=== PATIENT | male | born 1960 | race Caucasian/White ===

== ENCOUNTER 2018-07-26 02:20 | Inpatient (IN) | payer OTHER ==
[2018-07-26] MEDS ORDERED: NS 0.9% 1000 ML* 1,000 ML IV ONE (02:28)
[2018-07-26] MEDS ORDERED: Ketorolac INJ* 30 MG/ML 1 ML VIAL IV PUSH ONE (02:29)
[2018-07-26] MEDS ORDERED: Morphine VIAL* 4 MG/ML VIAL (1 ml vial) IV ONE (02:29)
--- NOTE | 2018-07-26 02:30 | ED ---
HPI Chest Pain - HPI Summary HPI Summary: A 58 y/o male brought in by ambulance presents to [facility] with a chief complaint of right sided chest pain since 07:00 07/25/18. The patient drove to [facility] and back on 07/24/18 which would take approximately 8 hours. He states that he sometimes has pain radiating up to his right shoulder. He denies N/V, abdominal pain, SOB, calf swelling, dizziness or lightheadedness. He states that he was lightheaded due to spasms and may have felt SOB due to the pain, but he does not report those symptoms currently in the ED. He claims that NTG in the ambulance alleviated his pain. He rates his pain as a 5/10. He describes the pain as a dull/stabbing pain. He denies smoking. 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 - History of Current Complaint Time Seen by Provider: 07/26/18 02:24 Hx Obtained From: Patient Onset/Duration: Started Hours Ago, Still Present Timing: Constant, Lasting Hours Initial Severity: Moderate Current Severity: Moderate Pain Intensity: 5 Pain Scale Used: 0-10 Numeric Chest Pain Location: Diffuse - right sided Chest Pain Radiates: Yes Chest Pain Radiates To:: Shoulder - right Character: Other: - Dull/stabbing Aggravating Factor(s): Nothing Alleviating Factor(s): Medication Associated Signs and Symptoms: Negative: Dizziness, Shortness of Breath, Fever, Lightheadedness, Nausea, Abdominal Pain, Calf Pain/Swelling, Vomiting - Allergy/Home Medications Allergies/Adverse Reactions: Allergies Allergy/AdvReac Type Severity Reaction Status Date / Time No Known Allergies Allergy Verified 11/08/15 11:22 PMH/Surg Hx/FS Hx/Imm Hx Endocrine/Hematology History: Denies: Hx Diabetes Cardiovascular History: Denies: Hx Hypercholesterolemia, Hx Hypertension - Surgical History Surgery Procedure, Year, and Place: Hernia repair Infectious Disease History: Denies: Traveled Outside the [place] in Last 30 Days - Family History Known Family History: Negative: Cardiac Disease, Hypertension - Social History Alcohol Use: Occasionally Hx Substance Use: No Substance Use Type: Reports: None Hx Tobacco Use: No Smoking Status (MU): Never Smoked Tobacco Review of Systems Negative: Fever Positive: Chest Pain Negative: Shortness Of Breath Negative: Abdominal Pain, Vomiting, Nausea Positive: Arthralgia - right shoulder pain Neurological: Negative - dizziness, lightheadedness All Other Systems Reviewed And Are Negative: Yes Physical Exam - Summary Physical Exam Summary: Appearance: Well-appearing, Well-nourished, lying in bed holding right side of chest in pain Skin: Warm, dry, no obvious rash Eyes: sclera anicteric, no conjunctival pallor ENT: mucous membranes moist, pharynx appears normal Neck: Supple, nontender Respiratory: Clear to auscultation, no signs of respiratory distress Cardiovascular: Normal S1, S2. No murmurs. Normal distal pulses in tibial and radial bilaterally. Abdomen: Soft, nontender, normal active bowel sounds present Musculoskeletal: Normal, Strength/ROM Intact Neurological: A&Ox3, awake and alert, mentation is normal, speech is fluent and appropriate Psychiatric: affect is normal, does not appear anxious or depressed Triage Information Reviewed: Yes Vital Signs Reviewed: Yes Diagnostics - Laboratory Result Diagrams: 07/26/18 02:53 07/26/18 02:53 Lab Statement: Any lab studies that have been ordered have been reviewed, and results considered in the medical decision making process. - Radiology CXR Radiology Interpretation Completed By: ED Physician Summary of Radiographic Findings: No acute disease. Pending official radiology report. - EKG 02:38 Cardiac Rate: NL - 77 bpm EKG Rhythm: Sinus Rhythm Summary of EKG Findings: NSR at 77 BPM, P waves, QRS complex, and T waves are within normal limits, T waves and intervals are normal, no ischemic changes. This is a normal EKG. Chest Pain Course/Dx - Course Course Of Treatment: A 58 y/o male brought in by ambulance presents to [facility] with a chief complaint of right sided chest pain since 07:00 07/25/18. The patient drove to [facility] and back on 07/24/18 which would take approximately 8 hours. He states that he sometimes has pain radiating up to his right shoulder. He denies N/V, abdominal pain, SOB, calf swelling, dizziness or lightheadedness. He states that he was lightheaded due to spasms and may have felt SOB due to the pain, but he does not report those symptoms currently in the ED. He claims that NTG in the ambulance alleviated his pain. He rates his pain as a 5/10. He describes the pain as a dull/stabbing pain. He denies smoking. 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 The physical exam was unremarkable other than the patient holding the right side of his chest in pain. EKG showed NSR at 77 BPM, P waves, QRS complex, and T waves are within normal limits, T waves and intervals are normal, no ischemic changes. This is a normal EKG. CXR showed no acute disease. In the ED course the patient was given Toradol IV, Morphine IV and Sodium Chloride IV. Lab results obtained. D-dimer high at 423. This patient will be signed out to Dr. Johnson at shift pending chest/thorax CTA. Discharge - Sign-Out/Discharge Documenting (check all that apply): Sign-Out Patient Signing out patient TO: Chava Johnson - pending Chest/Thorax CTA - Discharge Plan Condition: Good Disposition: HOME Patient Education Materials: Chest Wall Pain (ED) Referrals: Donovan Amezquita MD [Primary Care Provider] - - Attestation Statements Document Initiated by Scribe: Yes Documenting Scribe: Raymond Melton Provider For Whom Scribe is Documenting (Include Credential): Chava Mcpherson MD Scribe Attestation: Raymond Gonzalez, scribed for Chava Mcpherson MD on 07/26/18 at 0655. Status of Scribe Document: Ready
[2018-07-26 03:01] LABS: ABS Basophils 0 10^3/ul (0-0.2); ABS Eosinophils 0.1 10^3/ul (0-0.6); ABS Lymphocytes 1.3 10^3/ul (1.0-4.8); ABS Monocytes 0.6 10^3/ul (0-0.8); ABS Neutrophils 5.6 10^3/ul (1.5-7.7); ABS Nucleated RBC 0 10^3/ul; Eosinophil % 1.2 %; Hematocrit 43 % (42-52); Hemoglobin 14.8 g/dl (14.0-18.0); Lymphocyte % 16.6 %; Mean Corpuscular HGB Conc 34 g/dl (31-36); Mean Corpuscular Hemoglobin 32 pg (27-31); Mean Corpuscular Volume 93 fL (80-94); Mean Platelet Volume 7.7 fL (7.4-10.4); Nucleated Red Blood Cells % 0.1; Platelet Count 146 10^3/ul (150-450); Red Blood Count 4.68 10^6/ul (4.00-5.40); Red Cell Distribution Width 14 % (10.5-15); White Blood Count 7.6 10^3/ul (3.5-10.8)
[2018-07-26 03:18] LABS: Albumin 3.9 g/dL (3.2-5.2); Albumin/Globulin Ratio 1.6 (1-3); BUN/Creatinine Ratio 18.3 (8-20); Calcium 9.3 mg/dL (8.6-10.3); EGFR Non-African American 58.8 (>60); Globulin 2.4 g/dL (2-4); Potassium 3.9 mmol/L (3.5-5.0); Total Bilirubin 0.7 mg/dL (0.2-1.0); Total Protein 6.3 g/dL (6.4-8.9)
[2018-07-26] MEDS ORDERED: Iodixanol* (CONTRAST) 320 MG/ML 100 ML SDV IV ONE (03:43)
--- NOTE | 2018-07-26 07:10 | ED ---
Progress - Progress Note Progress Note: RECEIVING SIGN-OUT FROM DR. MCPHERSON AT SHIFT CHANGE PENDING CHEST CTA AND DISPO. 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 0719: ED provider at bedside Discussing CTA result with pt and plans to admit. - Results/Orders Results/Orders: CTA CHEST: IMPRESSION: 1. Bilateral lower lobe pulmonary emboli. 2. Coronary artery calcifications. 3. Cystic changes in the right middle lobe. 4. Linear atelectasis or fibrosis in the right lower lobe. ED provider has reviewed this report. Course/Dx - Course Course Of Treatment: RECEIVING SIGN-OUT FROM DR. MCPHERSON AT SHIFT CHANGE PENDING CTA RESULTS. Mr. Soriano was found on CT to have large saddle pulmonary emboli. I spoke with him and he denied any respiratory distress and complained only of pleuritic chest pain. He began to have symptoms about 24 hours ago. He was started on a heparin bolus and drip. I noted no sign of RVH on his EKG and the hospitalists were contacted for admission. - Diagnoses Provider Diagnoses: Pulmonary embolus - Provider Notifications Discussed Care Of Patient With: Mary Izquierdo - hospitalist Time Discussed With Above Provider: 07:13 Instructed by Provider To: Admit As Inpatient - Critical Care Time Critical Care Time: 30-74 min Discharge - Sign-Out/Discharge Documenting (check all that apply): Patient Departure - ADMIT, Receiving Sign- Out Receiving patient FROM: Chava Mcpherson - Discharge Plan Condition: Stable Disposition: ADMITTED TO [facility] - Billing Disposition and Condition Condition: STABLE Disposition: Admitted to [facility] - Attestation Statements Document Initiated by Scribe: Yes Documenting Scribe: Zohra Prajapati Provider For Whom Scribe is Documenting (Include Credential): Dr. Chava Jonhson MD Scribe Attestation: I, randall Gonzalezibed for Dr. Chava Johnson MD on 07/26/18 at 0836. Scribe Documentation Reviewed: Yes Provider Attestation: The documentation as recorded by the Zohra solano accurately reflects the service I personally performed and the decisions made by me, Dr. Chava Johnson MD Status of Scribe Document: Viewed
[2018-07-26] MEDS ORDERED: Heparin DRIP 25,000 UNITS(*) 25,000 UNITS/500 ML BAG IV SCH (07:30)
[2018-07-26] MEDS ORDERED: Heparin VIAL(*) 5000 UNITS/ML VIAL (FIVE THOUSAND) ONE (07:47)
[2018-07-26] MEDS ORDERED: Heparin VIAL(*) 5000 UNITS/ML VIAL (FIVE THOUSAND) IV ONE (07:51)
[2018-07-26] MEDS: Rivaroxaban TAB(*) 15 MG PO SCH ×2 (09:44→20:27)
[2018-07-26] MEDS ORDERED: Acetaminophen TAB* 325 MG PO PRN (10:58)
[2018-07-26] MEDS: Morphine VIAL* 4 MG/ML VIAL (1 ml vial) IV PRN ×2 (13:05→17:32)
--- NOTE | 2018-07-26 13:39 | HP ---
HISTORY AND PHYSICAL: DATE OF ADMISSION: 07/26/18 PRIMARY CARE PROVIDER: Dr. Amezquita. CHIEF COMPLAINT: Chest pain. HISTORY OF PRESENT ILLNESS: Mr. Soriano is a 58-year-old male, who states that on this past , 07/24/18, he drove approximately 12 hours round trip. He woke up on 07/25/18 with discomfort in the right chest and back area. This subsequently progressed radiating to the shoulder and neck. He states that in the evening, he tried to lay down to go to sleep and he had a difficult time doing so. He states that it hurts to take a deep breath. Finally, he told his that he needed to come to the emergency room for evaluation. After the patient was identified to have a pulmonary embolism on CTA, the patient contacted his mother. She reportedly has a history of recurrent DVTs. She sent him an image of testing that she had done that revealed her to be a heterozygote for a factor V Leiden deficiency. PAST MEDICAL HISTORY: None. PAST SURGICAL HISTORY: 1. Deviated septum repair. 2. Left groin hernia repair. MEDICATIONS: 1. Psyllium 1 cap p.o. daily. 2. Fish oil. 3. Multivitamin 1 tablet p.o. daily. ALLERGIES: No known drug allergies. FAMILY HISTORY: Mom is living. She has a history of recurrent DVTs. Dad is also living. He has a history of hypertension. SOCIAL HISTORY: The patient smokes an occasional cigar. He drinks an occasional beer. He works at [employer] in the [place]. He is . He has 3 children. He indicates that his , Ani, would be his healthcare proxy. REVIEW OF SYSTEMS: A complete 11-system review of systems is obtained. Pertinent positives and negatives are as per HPI and otherwise negative. PHYSICAL EXAMINATION GENERAL: The patient is a well-developed, middle-aged male seen sitting up in the bed, in no acute distress. VITAL SIGNS: Blood pressure 133/75, pulse 62, respirations 20, temp 97.0, O2 sat 100% on 2 L. HEENT: Pupils are equal and round. Extraocular muscles are intact. Oropharynx is clear. Oral mucosa is moist. There is no submandibular, cervical , or supraclavicular adenopathy. Thyroid is not enlarged. No thyroid nodules noted. PULMONARY: Lungs are clear to auscultation bilaterally. CARDIAC: Normal S1, S2. Regular rate and rhythm. I do not appreciate any murmur. There is perhaps slight, left greater than right, lower extremity edema. ABDOMEN: Bowel sounds are present. Abdomen is soft, nontender, and nondistended. MUSCULOSKELETAL: There is no cyanosis or clubbing in the digits. There is full active range of motion of all 4 extremities. NEUROLOGIC: Cranial nerves II to XII are grossly intact. Sensation is intact to light touch throughout. Strength is 5/5 and symmetric both upper and lower extremities bilaterally. PSYCHIATRIC: The patient is alert. He is oriented x3. Affect appears appropriate. SKIN: Warm and dry. There are no rashes. DIAGNOSTIC STUDIES/LAB DATA: Laboratory: WBC 7.6, hemoglobin 14.8, hematocrit 43, platelets 146. D-dimer is 423. PTT 28.6. Sodium 137, potassium 3.9, chloride 105, CO2 25, BUN 23, creatinine 1.26, glucose 115, calcium 9.3, bilirubin 0.7, AST 11, ALT 14, alk phos 50, troponin 0, albumin 3.9. EKG reveals normal sinus rhythm with no acute ST-T wave abnormalities. Chest x - ray, stigmata of obstructive lung disease with mild basilar atelectasis. No significant acute pulmonary or cardiac process evident. CTA chest, bilateral lower lobe pulmonary emboli, coronary artery calcifications, cystic changes in the right middle lobe, and linear atelectasis or fibrosis in the right lower lobe. ASSESSMENT AND PLAN: Mr. Sroiano is a 58-year-old male with no significant past medical history, but a family history of his mom having recurrent deep venous thromboses and being a heterozygote for factor V Leiden deficiency, who presents to the emergency room with complaints of the sudden onset of chest pain and is found to have bilateral lower lobe pulmonary emboli. 1. Bilateral pulmonary emboli. The patient was initially started on heparin drip in the emergency room; however, after discussion with the patient and his , the decision has been made to transition him to Xarelto 15 mg p.o. twice daily x21 days followed by 20 mg p.o. daily. I do believe the patient would benefit from a hematology evaluation given his mom's history. This can be done as an outpatient. Additionally, the patient will have lower extremity Dopplers performed to rule out extensive DVT as well as transthoracic echocardiogram to rule out any heart strain. The patient will have Tylenol and morphine available for pain. The patient has been instructed that he can get up and ambulate as he feels comfortable today. 2. The patient is a full code. [id number]/CPS #: [id number] MTDD
[2018-07-26] MEDS ORDERED: HYDROmorphone INJ1* 1 MG/ML SYRINGE ONE (14:50)
[2018-07-26] MEDS: HYDROmorphone INJ1* 1 MG/ML SYRINGE IV SLOW PU PRN (20:27)
[2018-07-26] MEDS ORDERED: Docusate CAP* 100 MG PO ONE (21:55)
[2018-07-27] MEDS: HYDROmorphone INJ1* 1 MG/ML SYRINGE IV SLOW PU PRN ×2 (04:20→08:37)
[2018-07-27] MEDS: Rivaroxaban TAB(*) 15 MG PO SCH ×2 (08:37→20:23)
--- NOTE | 2018-07-27 10:19 | ECHO ---
Patient: EUSEBIO LEE [facility] Rec#: [id number] : 1960 Date: 07/27/2018 Age: 58y Height: 191 cm / 75.2 in Weight: 83 kg / 182.9 lbs Sex: M BSA: 2.12 Room#: [facility] Admit Date#: 07/26/2018 Type: Inpatient Referring: Mary Izquierdo DO Reading: Gurjit Young MD Internet Site Designer: Estela Paz RN RDCS CC: Donovan Amezquita MD Transthoracic Echocardiogram Indication: Pulmonary embolism BP: 136/73 HR: 64 Rhythm: NSR Findings History: No significant past medical history Technical Comments: The study quality is fair. Left Ventricle: The left ventricular chamber size is normal. Mild concentric left ventricular hypertrophy is observed. Global left ventricular wall motion and contractility are within normal limits. There is normal left ventricular systolic function. The estimated ejection fraction is 55-60%. The assessment of diastolic function is non-diagnostic. Left Atrium: The left atrial chamber size is normal. Right Ventricle: The right ventricular cavity size is normal. The right ventricular global systolic function is normal. Right Atrium: The right atrial cavity size is normal. Aortic Valve: The aortic valve is trileaflet. The aortic valve leaflets are mildly thickened. There is no evidence of aortic regurgitation. There is no evidence of aortic stenosis. Mitral Valve: The mitral valve leaflets are mildly thickened. There is trace to mild mitral regurgitation. Tricuspid Valve: The tricuspid valve leaflets are normal. There is trace tricuspid regurgitation. There is evidence of borderline pulmonary hypertension. Pulmonic Valve: The pulmonic valve structure is not well visualized. There is a trace pulmonic regurgitation. There is no pulmonic stenosis. Pericardium: There is no significant pericardial effusion. Aorta: There is no dilatation of the ascending aorta. The aortic arch is not well visualized. There is no dilation of the aortic root. Pulmonary Artery: The main pulmonary artery is not well visualized. Venous: The venous system is not well visualized. Conclusions There is normal left size and left ventricular systolic function. The estimated ejection fraction is 55-60%. Global left ventricular wall motion and contractility are within normal limits. The right ventricular cavity size is normal. The right ventricular global systolic function is normal. Functionally benign heart valves. There is evidence of borderline pulmonary hypertension. There is no prior echocardiogram available to compare with at this time. Measurements Name Value Normal Range RVDdMajor (2D) 4 cm (2.2 - 4.4) RAd ISD 4CH 3.8 cm (3.4 - 4.9) RA (A4C)W 3.3 cm (2.9 - 4.6) IVSd (2D) 1.1 cm (0.6 - 1) LVPWd (2D) 1.1 cm (0.6 - 1) LVIDd (2D) 4.1 cm (3.6 - 5.4) LVIDs (2D) 2.8 cm - LV FS (2D) 32 % (25 - 45) Aortic Annulus 2 cm (1.4 - 2.6) Ao root diameter (2D) 3.4 cm (2.1 - 3.5) Ascending Ao 3.3 cm (2.1 - 3.4) LA dimension (AP) 2D 2.5 cm (2.3 - 3.8) LAd ISD 4CH 3.7 cm (2.9 - 5.3) LA ISD 4CH W 3.5 cm (2.5 - 4.5) Name Value Normal Range LA ESV BP (A/L) index 13.4 ml/m2 - Name Value Normal Range MV E-wave Vmax 0.83 m/sec - MV deceleration time 289 msec - MV A-wave Vmax 0.79 m/sec - LV septal e' Vmax 0.08 m/sec - LV lateral e' Vmax 0.08 m/sec - LV E:e' septal ratio 10.4 ratio - LV E:e' lateral ratio 10.4 ratio - Name Value Normal Range AV Vmax 1.2 m/sec - AV VTI 22.8 cm - AV peak gradient 6 mmHg - AV mean gradient 4 mmHg - LVOT Vmax 0.68 m/sec - LVOT VTI 20.7 cm - LVOT peak gradient 4 mmHg - LVOT mean gradient 2 mmHg - SOSA Vmax 0.74 m/sec - Name Value Normal Range TR Vmax 2.6 m/sec - TR peak gradient 27 mmHg - RAP 8 mmHg - RVSP 35 mmHg - Name Value Normal Range PV Vmax 1 m/sec -
[2018-07-27] MEDS ORDERED: oxyCODONE/Acetamin 5/325 MG* TAB PO PRN ×2 (11:58)
[2018-07-27] MEDS ORDERED: HYDROmorphone INJ1* 1 MG/ML SYRINGE IV SLOW PU PRN (12:00)
[2018-07-27] MEDS: Polyethylene Glycol 3350* 17 GM PACKET PO SCH ×2 (12:15→20:23)
--- NOTE | 2018-07-27 15:05 | PN ---
Subjective Date of Service: 07/27/18 Interval History: HOSPITALIST PROGRESS NOTE Patient seen and examined at bedside. Care reviewed and d/w Ronny Youngblood RN. He feels a little better today, but chest pain is still a 8/10 with inspiration. Denies palpitations, mild dyspnea with exertion. Family History: Unchanged from Admission Social History: Unchanged from Admission Past Medical History: Unchanged from Admission Objective Active Medications: Acetaminophen (Tylenol Tab*) 650 mg PO Q4H PRN PRN Reason: PAIN Hydromorphone HCl (Dilaudid Inj1s*) 1 mg IV SLOW PU Q4H PRN PRN Reason: PAIN Oxycodone/Acetaminophen (Percocet 5/325 Tab*) 1 tab PO Q4H PRN PRN Reason: moderate Pain Oxycodone/Acetaminophen (Percocet 5/325 Tab*) 2 tab PO Q4H PRN PRN Reason: SEVERE PAIN Polyethylene Glycol/Electrolytes (Miralax*) 17 gm PO 0800,2100 [facility] Last Admin: 07/27/18 12:15 Dose: 17 gm Rivaroxaban (Xarelto(*)) 15 mg PO BID [facility] Last Admin: 07/27/18 08:37 Dose: 15 mg Vital Signs - 8 hr 07/27/18 07/27/18 07/27/18 07:43 08:00 08:37 Temperature 100.1 F Pulse Rate 69 Respiratory 18 18 18 Rate Blood Pressure 133/68 (mmHg) O2 Sat by Pulse 96 Oximetry 07/27/18 07/27/18 10:22 12:02 Temperature 99.5 F Pulse Rate 79 Respiratory 16 16 Rate Blood Pressure 143/76 (mmHg) O2 Sat by Pulse 100 Oximetry Oxygen Devices in Use Now: None Appearance: Pleasant gentleman sitting up in bed in NAD. Eyes: No Scleral Icterus Ears/Nose/Mouth/Throat: Mucous Membranes Moist Neck: Trachea Midline Respiratory: Symmetrical Chest Expansion and Respiratory Effort, Clear to Auscultation Cardiovascular: RRR - Normal S1 and S2 Extremities: No Edema Neurological: Alert and Oriented x 3, NL Muscle Strength and Tone Result Diagrams: 07/26/18 02:53 07/26/18 02:53 Assess/Plan/Problems-Billing Assessment: Mr Soriano is a 58yo M with a family history of Factor V Leiden who presented to ED with c/o pleuritic chest pain after a prolonged car trip, found to have DVT/ PE. - Patient Problems (1) Pulmonary embolism Comment: - Mother has a h/o Factor V Leiden and DVTs. - CTA chest showed bilateral lower lobe PEs. - LE doppler shows left popliteal vein DVT. - Echo shows normal EF, normal RV function. - Continue Xarelto. - Will start Percocet for pain management and wean off Dilaudid. (2) Full code status
[2018-07-28] MEDS: Polyethylene Glycol 3350* 17 GM PACKET PO SCH ×2 (07:20→20:48)
[2018-07-28] MEDS: Rivaroxaban TAB(*) 15 MG PO SCH ×2 (07:21→20:49)
[2018-07-28] MEDS ORDERED: Magnesium Hydroxide LIQ* 30 ML UDC PO PRN (09:35)
[2018-07-28] MEDS: Metoprolol Tartrate TAB* 25 MG PO SCH ×2 (09:56→18:42)
[2018-07-28 11:06] LABS: BUN/Creatinine Ratio 10.4 (8-20); Calcium 9.7 mg/dL (8.6-10.3); EGFR Non-African American 71.8 (>60); Magnesium 2.4 mg/dL (1.9-2.7); Potassium 3.8 mmol/L (3.5-5.0)
--- NOTE | 2018-07-28 12:26 | PN ---
Subjective Date of Service: 07/28/18 Interval History: HOSPITALIST PROGRESS NOTE Patient seen and examined at bedside. Care reviewed and d/w Ronny Youngblood RN. Initially patient was feeling well, had improvement of pain and dyspnea. Only complaint was constipation. Plan was for discharge today and patient was agreeable. He went for a walk in the hallway and became tachycardic with HR 160s irregular - EKG confirmed atrial fibrillation. He could feels his heart racing, but denies chest pain or dyspnea. Family History: Unchanged from Admission Social History: Unchanged from Admission Past Medical History: Unchanged from Admission Objective Active Medications: Acetaminophen (Tylenol Tab*) 650 mg PO Q4H PRN PRN Reason: PAIN Hydromorphone HCl (Dilaudid Inj1s*) 1 mg IV SLOW PU Q4H PRN PRN Reason: PAIN Magnesium Hydroxide (Milk Of Magnesia Liq*) 30 ml PO Q6H PRN PRN Reason: CONSTIPATION Last Admin: 07/28/18 10:01 Dose: 30 ml Metoprolol Tartrate (Lopressor Tab*) 25 mg PO Q8H [facility] Last Admin: 07/28/18 09:56 Dose: 25 mg Oxycodone/Acetaminophen (Percocet 5/325 Tab*) 1 tab PO Q4H PRN PRN Reason: moderate Pain Oxycodone/Acetaminophen (Percocet 5/325 Tab*) 2 tab PO Q4H PRN PRN Reason: SEVERE PAIN Polyethylene Glycol/Electrolytes (Miralax*) 17 gm PO 0800,2100 [facility] Last Admin: 07/28/18 07:20 Dose: 17 gm Rivaroxaban (Xarelto(*)) 15 mg PO BID [facility] Last Admin: 07/28/18 07:21 Dose: 15 mg Vital Signs - 8 hr 07/28/18 07:27 Temperature 98.6 F Pulse Rate 112 Respiratory 16 Rate Blood Pressure 125/80 (mmHg) O2 Sat by Pulse 95 Oximetry Oxygen Devices in Use Now: None Appearance: Pleasant gentleman lying in bed in [facility]. Eyes: No Scleral Icterus Ears/Nose/Mouth/Throat: Mucous Membranes Moist Neck: Trachea Midline Respiratory: Symmetrical Chest Expansion and Respiratory Effort, Clear to Auscultation Cardiovascular: NL Sounds; No Murmurs; No JVD, RRR Neurological: Alert and Oriented x 3, NL Muscle Strength and Tone Result Diagrams: 07/26/18 02:53 07/28/18 10:35 Assess/Plan/Problems-Billing Assessment: Mr Soriano is a 58yo M with a family history of Factor V Leiden who presented to ED with c/o pleuritic chest pain after a prolonged car trip, found to have DVT/ PE. - Patient Problems (1) Atrial fibrillation Comment: - In the setting of PE. - Already on Rivaroxaban, plan for rate control - start Metoprolol and continue to monitor. (2) Pulmonary embolism Comment: - Mother has a h/o Factor V Leiden and DVTs. - CTA chest showed bilateral lower lobe PEs. - LE doppler shows left popliteal vein DVT. - Echo shows normal EF, normal RV function. - Continue Xarelto. - Continue pain management. (3) Constipation Comment: - Continue laxatives. (4) Full code status Status and Disposition: Change to inpatient due to new Afib and continue to monitor on Telemetry.
[2018-07-28] MEDS ORDERED: Potassium Chlor TAB* 20 MEQ TAB.ER PO ONE (18:07)
[2018-07-29] MEDS: Metoprolol Tartrate TAB* 25 MG PO SCH ×2 (01:45→09:52)
[2018-07-29] MEDS: Polyethylene Glycol 3350* 17 GM PACKET PO SCH (09:51)
[2018-07-29] MEDS: Rivaroxaban TAB(*) 15 MG PO SCH (09:52)
[2018-07-29 11:21] VITALS: BP 113/73
--- NOTE | 2018-07-30 03:51 | DS ---
CC: Dr. Amezquita * DISCHARGE SUMMARY: DATE OF ADMISSION: 07/26/18 DATE OF DISCHARGE: 07/29/18 PRIMARY CARE PROVIDER: Dr. Amezquita. DISCHARGE DIAGNOSES: 1. Pulmonary embolism. 2. Lower extremity deep venous thrombosis. 3. Paroxysmal atrial fibrillation. MEDICATION LIST: 1. Metoprolol tartrate 25 mg p.o. q.8 hours. 2. Multivitamin 1 tablet p.o. daily. 3. Percocet 5/325 one tablet p.o. q.4 hours p.r.n. severe pain, MDD 6 tablets, dispensed 20. 4. MiraLAX 17 grams p.o. daily. 5. Psyllium 0.52 grams p.o. daily. 6. Rivaroxaban 15 mg p.o. b.i.d. for 90 more days, followed by rivaroxaban 20 mg p.o. daily. HOSPITAL COURSE: Mr. Soriano is a 58-year-old healthy male, who presented to the emergency room with complaints of chest pain and shortness of breath after a prolonged round trip. For more details about his presentation, I refer you to his history and physical. The patient had a CTA of the chest that showed bilateral lower lobe pulmonary emboli with coronary artery calcifications, cystic changes in the right middle lobe, linear atelectasis of the right lower lobe. The patient was admitted to the telemetry floor for further evaluation. He had a lower extremity Doppler that showed nonocclusive DVT of the left popliteal vein and a transthoracic echocardiogram that showed ejection fraction of 55% 60 % with right ventricular cavity size normal with normal global systolic function of the right ventricle also and borderline pulmonary hypertension. The patient reviewed risks and benefits of multiple options of anticoagulation and elected to be treated with Xarelto. He contacted his mother who informed him that she has a history of recurrent DVTs and she is heterozygous for factor V Leiden deficiency. The patient did well while in the hospital and he had one episode of paroxysmal atrial fibrillation. At that point, metoprolol was added and the patient converted to sinus rhythm overnight. He is medically stable to be discharged at this time and he was advised to avoid strenuous exertion until he is seen by Dr. Amezquita and cleared to return to work. He would also benefit from Cardiology evaluation as an outpatient considering his coronary artery calcification on CTA and his paroxysmal atrial fibrillation. The patient is medically stable to be discharged home today to follow up with Dr. Amezquita as an outpatient. PHYSICAL EXAMINATION: Vital Signs: Temperature 97.5, heart rate 66, respiratory rate 18, oxygen saturation 97% on room air, blood pressure is 113/ 73. General: The patient is a pleasant gentleman, sitting up in a recliner, in no acute distress. CVS: Normal S1, S2. Regular rate and rhythm. Chest: Breath sounds present bilaterally with no added sounds. Neuro: He is alert and oriented x3. Able to move all 4 extremities. DIET: Regular diet. ACTIVITIES: As tolerated. The patient was advised to avoid strenuous physical exertion until he is cleared by Dr. Amezquita. STATUS WHILE IN THE HOSPITAL: Inpatient. DISPOSITION: To home. Please keep in mind that this is a summarized version of this patient's hospital stay. If you need more information, please feel free to call me at or please obtain full medical records. TIME SPENT: Approximately 45 minutes was spent to complete this discharge. [id number]/[facility] #: [id number] [place]
== END 2018-07-29 12:05 | disposition home or self-care (01) | DRG 176 ==
LOC: ED 02:20 → MEDTELE 07:37 → OBSVTOIN 07-28 10:22
PROVIDERS: ADMIT Hospitalist; ATTEND Internal Medicine
DX: I26.99 Other pulmonary embolism without acute cor pulmonale (principal); J98.11 Atelectasis; I82.432 Acute embolism and thrombosis of left popliteal vein; I27.20 Pulmonary hypertension, unspecified; I48.0 Paroxysmal atrial fibrillation; K59.00 Constipation, unspecified; Z79.899 Other long term (current) drug therapy; Z83.2 Family history of diseases of the blood and blood-forming organs and certain disorders involving the immune mechanism; Z82.49 Family history of ischemic heart disease and other diseases of the circulatory system; Z72.0 Tobacco use
CPT/HCPCS: 36415; 71046; 71275; 80048; 80053; 83735; 84484; 85025; 85379; 85730; 93005; 93306; 93970; 99283; A9270-GY; G0378; J1170; J1644; J1885; J2270; Q9967